=== PATIENT | female | born 1970 | race Caucasian/White ===

== ENCOUNTER 2024-11-10 14:27 | Emergency (ER) | payer MEDICAID, OTHER ==
[~2024-11-10] VITALS: Ht 170.2 cm; Wt 100.0 kg
[2024-11-10 14:39] VITALS: BP 163/77; TEMP 98.8; O2SAT 98
[2024-11-10 15:07] VITALS: PULSE 100; RESP 18; O2SAT 100
[2024-11-10] MEDS ORDERED: SODIUM CHLORIDE 0.9% 1,000 ML IV ONE ×2 (16:45→17:00)
== END 2024-11-10 23:07 | disposition left against medical advice (07) ==
LOC: ER 14:36 → EDBEDREQ 17:23 → ER 23:07
DX: E11.65 Type 2 diabetes mellitus with hyperglycemia (principal); R06.02 Shortness of breath; I10 Essential (primary) hypertension; Z79.899 Other long term (current) drug therapy
CPT/HCPCS: 82962; 93005; 99283; J7030